=== PATIENT | male | born 1990 | race Caucasian/White ===

== ENCOUNTER 2016-07-06 06:47 | Emergency (ER) | payer BC ==
[2016-07-06 07:05] VITALS: TEMP 101; BMI 30.1
--- NOTE | 2016-07-06 07:22 | PDOC ---
History of Present Illness - General Chief Complaint: Pain, Acute Stated Complaint: ABDOMINAL PAIN Time Seen by Provider: 07/06/16 07:21 - History of Present Illness Initial Comments: 26 yo M with possible h/o kidney stone presented to the ED with acute R flank pain. It occurs this AM around 6am, non-radiating, quality can't be described, constant, worsening, 20/10 per patient, no aggravating or alleviating factors, no other associating symptoms. Patient accounts having prior similar episode but it's on the L flank. He stated that he's not sure if he had kidney stone last time as he did not follow up with the doctor in ED. Denies fever, chills, sob, chest pain, n/v. Past History - Past Medical History Allergies/Adverse Reactions: Allergies Allergy/AdvReac Type Severity Reaction Status Date / Time No Known Allergies Allergy Verified 07/06/16 07:48 Home Medications: Ambulatory Orders Ibuprofen [Motrin -] 600 mg PO TID #30 tablet 07/06/16 Tamsulosin HCl [Flomax] 0.4 mg PO DAILY #30 capsule 07/06/16 - Psycho/Social/Smoking Cessation Hx Suicidal Ideation: No Smoking History: Never smoked Have you smoked in the past 12 months: No Information on smoking cessation initiated: No Hx Alcohol Use: No Drug/Substance Use Hx: No Review of Systems - Review of Systems Able to Perform ROS?: Yes Is the patient limited Mongolian proficient: No Constitutional: No: Chills, Fever Respiratory: No: Cough, Shortness of Breath Cardiac (ROS): No: Chest Pain ABD/GI: Yes: Abdominal cramping. No: Nausea, Vomiting Neurological: No: Headache *Physical Exam - Vital Signs Last Vital Signs Temp Pulse Resp BP Pulse Ox 101 F H 101 H 20 141/113 100 07/06/16 07:02 07/06/16 07:02 07/06/16 07:02 07/06/16 07:02 07/06/16 07:02 - Physical Exam General Appearance: Yes: Other (in severe pain) Neck: positive: Trachea midline, Supple Respiratory/Chest: positive: Lungs Clear, Normal Breath Sounds Cardiovascular: positive: Regular Rhythm, S1, S2, Tachycardia. negative: Murmur Gastrointestinal/Abdominal: positive: Normal Bowel Sounds, Soft, Tenderness ( RLQ and R flank) Musculoskeletal: positive: CVA Tenderness (R) ED Treatment Course - LABORATORY CBC & Chemistry Diagram: 07/06/16 07:40 07/06/16 07:45 Medical Decision Making - Medical Decision Making 07/06/16 07:45 26 yo M admitted to the ED for suspected R kidney stone. Will obtain regular blood work, UA, CT abd and pelvis. Pain control with morphine 4mg, also give flomax 0.4mg once. 07/06/16 08:32 Vitals show fever and tachycardia despite patient denied fever 07/06/16 09:17 CT abd and pelvis shows 2mm in R UVJ. Patient will be discharged on flomax x 4 weeks, urine strainer, and motrin 600mg Q8H as needed. *DC/Admit/Observation/Transfer Diagnosis at time of Disposition: Calculus of right kidney - Discharge Dispostion Disposition: HOME Condition at time of disposition: Stable Admit: No - Prescriptions Prescriptions: Tamsulosin HCl [Flomax] 0.4 mg PO DAILY #30 capsule Ibuprofen [Motrin -] 600 mg PO TID #30 tablet
[2016-07-06] MEDS ORDERED: morphine CARPU-JECT 4 MG/1 ML DISP.SYRIN IVPUSH ONE (07:30)
[2016-07-06] MEDS ORDERED: TAMSULOSIN HCL 0.4 MG CAP.ER.24H (FP) PO ONE (07:33)
[2016-07-06 07:55] LABS: BASOPHIL 1.2 % (0-2.0); EOSINOPHIL 8.6 % (0-4.5); MCH 31.6 pg (25.7-33.7); MCHC 34.5 g/dl (32.0-35.9); MEAN CELL VOLUME 91.5 fl (80-96); MEAN PLT VOLUME 9.7 fl (7.5-11.1); NEUTROPHILS 57.1 % (42.8-82.8); PLATELET COUNT 188 K/MM3 (134-434); RDW 12.9 % (11.9-15.9); WHITE BLOOD COUNT 10.4 K/mm3 (4.0-10.0)
[2016-07-06 08:01] LABS: URINE APPEARANCE CLEAR; URINE BILIRUBIN NEGATIVE (NEGATIVE); URINE BLOOD NEGATIVE (NEGATIVE); URINE COLOR YELLOW; URINE GLUCOSE (UA) NEGATIVE (NEGATIVE); URINE KETONE NEGATIVE (NEGATIVE); URINE LEUK ESTERASE NEGATIVE (NEGATIVE); URINE NITRITE NEGATIVE (NEGATIVE); URINE PROTEIN NEGATIVE (NEGATIVE); URINE UROBILINOGEN 2.0 E.U/dl E.U./dl (0.2-1.0)
[2016-07-06] MEDS ORDERED: KETOROLAC TROMETHAMINE 30 MG/1 ML VIAL IVPUSH PRN (08:07)
[2016-07-06] MEDS ORDERED: KETOROLAC TROMETHAMINE 30 MG/1 ML VIAL IVPUSH ONE (08:07)
[2016-07-06 08:12] LABS: INR 1.16 (0.82-1.09); PROTHROMBIN TIME (PATIENT) 12.8 SEC (9.98-11.88)
[2016-07-06 08:15] LABS: ACTIVATED PTT 27.8 SECONDS (26.9-34.4)
[2016-07-06] MEDS ORDERED: SODIUM CHLORIDE 1,000 ML IV SCH (08:15)
[2016-07-06 08:25] LABS: ALBUMIN 4.1 g/dl (3.4-5.0); ANION GAP 12 (8-16); CALCIUM 9.1 mg/dL (8.5-10.1); CO2 22 mmol/L (21-32); COCKROFT - GAULT 117.23; CREATININE 1.3 mg/dL (0.7-1.3); GLUCOSE,RANDOM 120 mg/dL (74-106); SGOT/AST 19 U/L (15-37); SGPT/ALT 26 U/L (12-78)
[2016-07-06 08:26] LABS: ALK PHOS 109 U/L (45-117); TOT PROT 7.5 g/dl (6.4-8.2)
[2016-07-06 09:23] VITALS: BP 110/73; PULSE 71
== END 2016-07-06 09:29 | disposition home or self-care (01) ==
LOC: JER 06:47
PROC: 3E0337Z Introduction of Electrolytic and Water Balance Substance into Peripheral Vein, Percutaneous Approach (ICD-10-PCS; principal; 2016-07-06)
PROC: 3E033NZ Introduction of Analgesics, Hypnotics, Sedatives into Peripheral Vein, Percutaneous Approach (ICD-10-PCS; 2016-07-06)
PROC: 3E0333Z Introduction of Anti-inflammatory into Peripheral Vein, Percutaneous Approach (ICD-10-PCS; 2016-07-06)
DX: N13.2 Hydronephrosis with renal and ureteral calculous obstruction (principal); Z87.442 Personal history of urinary calculi
CPT/HCPCS: 36415; 74176-TC; 80053; 81003; 85025; 85610; 85730; 99283-25

== ENCOUNTER 2022-06-19 08:56 | Emergency (ER) | payer BC, OTHER ==
[2022-06-19 09:04] VITALS: BMI 34.8
[2022-06-19] MEDS ORDERED: ACETAMINOPHEN 500 MG TABLET (FP) PO ONE (09:15)
[2022-06-19] MEDS ORDERED: ACETAMINOPHEN 500 MG TABLET (FP) ONE (09:54)
[2022-06-19] MEDS ORDERED: SODIUM CHLORIDE 1,000 ML IV STA ×2 (10:15→11:26)
[2022-06-19] MEDS ORDERED: KETOROLAC TROMETHAMINE 30 MG/1 ML VIAL IVPUSH ONE (10:16)
[2022-06-19] MEDS ORDERED: KETOROLAC TROMETHAMINE 30 MG/1 ML VIAL ONE (10:35)
[2022-06-19 10:51] LABS: BASO % 0.4 % (0-2.0); EOS % 0.1 % (0-4.5); HEMATOCRIT 40.5 % (35.4-49); HEMOGLOBIN 13.9 GM/dL (11.7-16.9); LYMPH % 6.8 % (8-40); MCH 30.9 pg (25.7-33.7); MCHC 34.4 g/dl (32.0-35.9); MEAN CELL VOLUME 89.9 fl (80-96); MEAN PLT VOLUME 9.4 fl (7.5-11.1); MONO % 5.6 % (3.8-10.2); NEUT % 87.1 % (42.8-82.8); PLATELET COUNT 187 10^3/uL (134-434); RBC 4.51 M/mm3 (4.00-5.60); RDW 13.3 % (11.9-15.9); WHITE BLOOD COUNT 15.2 K/mm3 (4.0-10.0)
[2022-06-19 11:06] VITALS: RESP 18
[2022-06-19 11:25] LABS: ALBUMIN 3.5 g/dl (3.4-5.0); CALCIUM 8.6 mg/dL (8.5-10.1)
[2022-06-19 11:28] LABS: CREATININE 1.3 mg/dL (0.55-1.3)
[2022-06-19 11:30] LABS: BILIRUBIN,TOTAL 1.5 mg/dL (0.2-1)
[2022-06-19 11:34] LABS: BLOOD UREA NITROGEN 15.9 mg/dL (7-18)
[2022-06-19 12:23] LABS: BASO % 0.4 % (0-2.0); HEMATOCRIT 39.3 % (35.4-49); HEMOGLOBIN 13.7 GM/dL (11.7-16.9); LYMPH % 8.5 % (8-40); MCH 31.2 pg (25.7-33.7); MCHC 34.8 g/dl (32.0-35.9); MEAN CELL VOLUME 89.6 fl (80-96); MEAN PLT VOLUME 9.6 fl (7.5-11.1); MONO % 6.5 % (3.8-10.2); NEUT % 84.6 % (42.8-82.8); PLATELET COUNT 180 10^3/uL (134-434); RBC 4.39 M/mm3 (4.00-5.60); RDW 13.3 % (11.9-15.9); WHITE BLOOD COUNT 14.8 K/mm3 (4.0-10.0)
[2022-06-19 13:00] VITALS: BP 101/64; PULSE 100; TEMP 98.7
[2022-06-19 13:35] LABS: BASO % 0.4 % (0-2.0); HEMATOCRIT 37.6 % (35.4-49); HEMOGLOBIN 12.9 GM/dL (11.7-16.9); LYMPH % 10.6 % (8-40); MCH 30.9 pg (25.7-33.7); MCHC 34.4 g/dl (32.0-35.9); MEAN CELL VOLUME 89.8 fl (80-96); MEAN PLT VOLUME 9.7 fl (7.5-11.1); MONO % 6.5 % (3.8-10.2); NEUT % 82.5 % (42.8-82.8); PLATELET COUNT 175 10^3/uL (134-434); RBC 4.19 M/mm3 (4.00-5.60); RDW 13.6 % (11.9-15.9); WHITE BLOOD COUNT 14.7 K/mm3 (4.0-10.0)
== END 2022-06-19 13:38 | disposition home or self-care (01) ==
LOC: JER 08:56 → JERFT 08:56
PROC: 3E0333Z Introduction of Anti-inflammatory into Peripheral Vein, Percutaneous Approach (ICD-10-PCS; principal; 2022-06-19)
PROC: 3E0337Z Introduction of Electrolytic and Water Balance Substance into Peripheral Vein, Percutaneous Approach (ICD-10-PCS; 2022-06-19)
PROC: 3E0337Z Introduction of Electrolytic and Water Balance Substance into Peripheral Vein, Percutaneous Approach (ICD-10-PCS; 2022-06-19)
DX: R50.9 Fever, unspecified (principal); M79.10 Myalgia, unspecified site; Z20.822 Contact with and (suspected) exposure to COVID-19
CPT/HCPCS: 0241U-QW; 36415; 80053; 85025; 99284-25